=== PATIENT | female | born 1945 | race Caucasian/White ===

== ENCOUNTER 2016-06-03 10:34 | Outpatient (CLI) ==
--- NOTE | 2016-06-03 12:03 | DI ---
EXAM: PA and lateral views of the chest HISTORY: Bronchitis COMPARISON: None FINDINGS: The cardiomediastinal silhouette is normal. There are speckled calcifications in the medi astinum and hilum likely representing calcified lymph nodes. There is no pneumothorax or pleural eff usion. There is no consolidation, nodule or mass. The osseous structures demonstrate scattered deg enerative disease. IMPRESSION: No acute cardiopulmonary process or consolidation. Scattered benign-appearing calcifications are noted in the mediastinum likely representing old granu lomatous disease.
== END 2016-06-03 10:35 | disposition home or self-care (01) ==
LOC: RAD 10:34
PROVIDERS: ATTEND Family Medicine
DX: J40 Bronchitis, not specified as acute or chronic (principal)
CPT/HCPCS: 36415; 85379

== ENCOUNTER 2018-05-13 11:59 | Outpatient (CLI) | payer OTHER | END 2018-05-13 12:00 | disposition home or self-care (01) | LOC: LAB 11:59 | PROVIDERS: ATTEND Family Medicine | DX: R50.9 Fever, unspecified (principal) | CPT/HCPCS: 81001; 87086; 87186 ==